=== PATIENT | female | born 1985 | race African-American/Black ===

== ENCOUNTER 2019-04-17 17:54 | Emergency (ER) | payer OTHER ==
[~2019-04-17] VITALS: Ht 170.2 cm; Wt 100.0 kg
[~2019-04-17 17:54] MED LIST: DOCU-109 PO; IBUP-1060 PO; OXYC1TAB15 PO
[2019-04-17 18:00] VITALS: BP 144/92
[2019-04-17] MEDS ORDERED: ACYC800T PO (18:20)
[2019-04-17] MEDS ORDERED: SULF1TAB24 PO (18:20)
[2019-04-17] MEDS ORDERED: HYDR-3164 PO (18:20)
[2019-04-17] MEDS ORDERED: IBUP-1060 PO (18:21)
--- NOTE | 2019-04-17 18:21 | PHYS DOC ---
Past Medical History Past Medical History: No Pertinent History Past Surgical History: Smoking Status: Never Smoker Alcohol Use: None Adult General Chief Complaint Chief Complaint: CELLULITIS HPI HPI Patient is a 33 year old female who presents secondary to concern for a rash on her upper back and right deltoid region. It has been present times one to 2 days duration and is intensely painful. She states that it has a burning sensation. No medications given prior to arrival. Patient states that she has not had chickenpox or been vaccinated. Review of Systems Review of Systems All other ROS is negative unless otherwise stated in HPI Allergies Allergies Allergies Coded Allergies Type Severity Reaction Last Updated Verified No Known Drug Allergies 02/19/14 No Physical Exam Physical Exam See above Constitutional: Well developed, well nourished, no acute distress, non-toxic appearance. [] HENT: Normocephalic, atraumatic, bilateral external ears normal, oropharynx moist, no oral exudates, nose normal. [] Eyes: PERRLA, EOMI, conjunctiva normal, no discharge. [] Neck: Normal range of motion, no tenderness, supple, no stridor. [] Cardiovascular:Heart rate regular rhythm, no murmur [] Lungs & Thorax: Bilateral breath sounds clear to auscultation [] Abdomen: Bowel sounds normal, soft, no tenderness, no masses, no pulsatile masses. [] Skin: Warm, dry, no erythema, there is a vesicular rash with erythematous base consistent with shingles on the patient's upper back and right deltoid region. This rash is along the C6 dermatome Back: No tenderness, no CVA tenderness. [] Extremities: No tenderness, no cyanosis, no clubbing, ROM intact, no edema. [] Neurologic: Alert and oriented X 3, normal motor function, normal sensory function, no focal deficits noted. [] Psychologic: Affect normal, judgement normal, mood normal. [] Current Patient Data Vital Signs Vital Signs Date Time Temp Pulse Resp B/P (MAP) Pulse Ox O2 Delivery O2 Flow Rate FiO2 04/17/19 18:00 98.4 100 16 144/92 (109) 98 Room Air 98.4 EKG EKG [] Radiology/Procedures Radiology/Procedures [] Course & Med Decision Making Course & Med Decision Making Pertinent Labs and Imaging studies reviewed. (See chart for details) Examination is consistent with shingles. I will start her on antiviral medication and also covers for secondary bacterial infection with Bactrim. Bonita Disclaimer Dragon Disclaimer This electronic medical record was generated, in whole or in part, using a voice recognition dictation system. Departure Departure Impression: Primary Impression: Elvi Disposition: 01 HOME, SELF-CARE Condition: STABLE Referrals: NO PCP (PCP) Patient Instructions: Elvi Additional Instructions: You may also use ibuprofen and Tylenol for pain. Scripts Ibuprofen (IBUPROFEN) 800 Mg Tablet 800 MG PO PRN Q8HRS PRN for INFLAMMATION, #20 TAB Prov: LOS PERALTA DO 04/17/19 Hydrocodone/Apap 5-325 (NORCO 5-325 TABLET) 1 Each Tablet 1 TAB PO PRN Q6HRS PRN for PAIN, #20 TAB 0 Refills Prov: LOS PERALTA DO 04/17/19 Acyclovir (ACYCLOVIR) 800 Mg Tablet 1 TAB PO 5XDAY for 7 Days, #35 TAB Prov: LOS PERALTA DO 04/17/19 Sulfamethoxazole/Trimethoprim (BACTRIM DS TABLET) 1 Each Tablet 1 TAB PO BID for infection for 10 Days, #20 TAB Prov: LOS PERALTA DO 04/17/19 LOS PERALTA DO Apr 17, 2019 18:21
== END 2019-04-17 18:33 | disposition home or self-care (01) ==
LOC: ER 17:54
DX: B02.9 Zoster without complications (principal)
CPT/HCPCS: 99283